=== PATIENT | female | born 1975 | race American Indian/Alaskan Native ===

== ENCOUNTER 2017-12-31 23:24 | Emergency (ER) | payer MEDICAID ==
[2018-01-01 02:06] LABS: Basophils # (Auto) 0.1 K/mm3 (0.0-0.1); Basophils % (Auto) 0.8 % (0.0-1.8); Eosinophils # (Auto) 0.2 K/mm3 (0.0-0.4); Eosinophils % (Auto) 1.3 % (0.0-4.3); Hematocrit 39.6 % (30.3-42.9); Lymphocytes # (Auto) 3.6 K/mm3 (1.2-5.4); Lymphocytes % (Auto) 29.9 % (13.4-35.0); Mean Corpuscular HGB Conc 33 % (30-34); Mean Corpuscular Hemoglobin 29 pg (28-32); Mean Corpuscular Volume 88 fl (79-97); Monocytes # (Auto) 0.9 K/mm3 (0.0-0.8); Monocytes % (Auto) 7.3 % (0.0-7.3); Platelet Count 301 K/mm3 (140-440); Red Cell Distribution Width 15.8 % (13.2-15.2)
[2018-01-01 02:19] LABS: Alanine Aminotransferase 13 units/L (7-56); Albumin 3.9 g/dL (3.9-5); BUN/Creatinine Ratio 10; Blood Urea Nitrogen 9 mg/dL (7-17); Calcium 9.1 mg/dL (8.4-10.2); Hemolysis Index 13
[2018-01-01 06:10] LABS: Amorphous Crystals,Urine 1+; Bacteria,Urine 1+ /HPF (Negative); Bilirubin,Urine NEG (Negative); Blood,Urine NEG (Negative); Color,Urine Yellow (Yellow); Protein,Urine <15 mg/dL mg/dL (Negative)
[2018-01-01 06:11] LABS: HCG Qualitative,Urine Negative (Negative)
[2018-01-01 07:45] VITALS: BP 137/94
[2018-01-01] MEDS ORDERED: MOTRIN PO ONE (08:12)
[2018-01-01] MEDS ORDERED: BACTRIM DS PO ONE (08:12)
--- NOTE | 2018-01-01 08:20 | Emergency Department Report ---
HPI - General Chief Complaint: Abdominal Pain Time Seen by Provider: 01/01/18 07:53 - HPI HPI: Patient is a 42-year-old female with no problem medical history who presents to ED complaining of low pelvic cramping 3-4 days. Patient states she is also some intermittent nausea but no vomiting. He also had mentioned she had frequency but no dysuria. She denies fevers/chills/abdominal pain/shortness of breath since chest pain/diarrhea or constipation/vaginal bleeding/vaginal discharge. ED Past Medical Hx - Past Medical History Previous Medical History?: Yes Hx Hypertension: No Hx Diabetes: No Hx Deep Vein Thrombosis: No Hx Renal Disease: No Hx Sickle Cell Disease: No Hx Seizures: No Hx Asthma: Yes (albuterol prn) - Surgical History Past Surgical History?: No - Social History Smoking Status: Current Every Day Smoker Substance Use Type: Alcohol - Medications Home Medications: Home Medications Medication Instructions Recorded Confirmed Last Taken Type Acetaminophen/Codeine [Tylenol #3] 1 tab PO Q6H PRN #12 tab 10/22/13 Unknown Rx Azithromycin [Zithromax] 2 tab PO ONCE #2 tablet 10/22/13 Unknown Rx Vits96/Iron Fum/Folic 10/22/13 10/22/13 Unknown History [ Tablet] Ibuprofen [Motrin 800 MG tab] 800 mg PO TID #30 tablet 01/01/18 Unknown Rx Sulfamethoxazole/Trimethoprim 1 each PO BID #14 tablet 01/01/18 Unknown Rx [Bactrim DS TAB] ED Review of Systems ROS: Stated complaint: BAD PAIN IN LOWER ABDOMEN Other details as noted in HPI Constitutional: denies: chills, fever Eyes: denies: eye pain, eye discharge, vision change ENT: denies: ear pain, throat pain Respiratory: denies: cough, shortness of breath, wheezing Cardiovascular: denies: chest pain, palpitations Endocrine: no symptoms reported Gastrointestinal: denies: abdominal pain, nausea, diarrhea Genitourinary: denies: urgency, dysuria, discharge Musculoskeletal: denies: back pain, joint swelling, arthralgia Skin: denies: rash, lesions Neurological: denies: headache, weakness, paresthesias Psychiatric: denies: anxiety, depression Hematological/Lymphatic: denies: easy bleeding, easy bruising Physical Exam - Physical Exam Vital Signs: Vital Signs 01/01/18 01/01/18 01:08 07:43 Temperature 99 F 98.4 F Pulse Rate 80 75 Respiratory 16 18 Rate Blood Pressure 139/94 Blood Pressure 137/94 [Right] O2 Sat by Pulse 100 98 Oximetry Physical Exam: GENERAL: Alert and oriented x3, no apparent distress, Normal Gait, atraumatic. HEAD: Head is normocephalic and a-traumatic. LUNGS: Symetrical with respiration, No wheezing, no rales or crackles, CTAB. HEART: S1, S2 present, regular rate and rhythm without murmur, no rubs, no gallops. Non tender to palpation ABDOMEN: No organomegaly was noted,Positive bowel sounds, soft, and non- distended. Nontender to palpation on all Quadrants, NO CVA tenderness. BACK: Full range of motion, no spinal tenderness, nontender to palpation. SKIN: Warm and dry, No lesions, No ulceration or induration present. ED Course Vital Signs 01/01/18 01/01/18 01:08 07:43 Temperature 99 F 98.4 F Pulse Rate 80 75 Respiratory 16 18 Rate Blood Pressure 139/94 Blood Pressure 137/94 [Right] O2 Sat by Pulse 100 98 Oximetry ED Medical Decision Making - Lab Data Result diagrams: 01/01/18 01:35 01/01/18 01:35 - Medical Decision Making 42-year-old female present with urinary tract infection ED course: Motrin and Bactrim ordered for patient. Pt received CBC,BMP, urinalysis, urine test was ordered. Labs are within normal limits mildly elevated white count, urinalysis shows bacteria, leukocyte esterase and urine test negative I discussed with the patient her lab results and discussed with her that she has a urinary tract infection I discussed with the patient initially with minimal antibiotics. Vital signs are normal, patient is in no acute distress. sHe is alert and oriented and understands all instructions given. Critical care attestation.: If time is entered above; I have spent that time in minutes in the direct care of this critically ill patient, excluding procedure time. ED Disposition Clinical Impression: Nausea UTI (urinary tract infection) Qualifiers: Urinary tract infection type: acute cystitis Hematuria presence: without hematuria Qualified Code(s): N30.00 - Acute cystitis without hematuria Disposition: TO HOME OR SELFCARE Is pt being admited?: No Does the pt Need Aspirin: No Condition: Stable Instructions: Urinary Tract Infection in Women (ED), Abdominal Pain (ED) Additional Instructions: Make sure to follow up with the primary care physician as discussed. Take all your medications as you've been prescribed. If you have any worsening symptoms or develop new symptoms please return to ED immediately. Prescriptions: Ibuprofen [Motrin 800 MG tab] 800 mg PO TID #30 tablet Sulfamethoxazole/Trimethoprim [Bactrim DS TAB] 1 each PO BID #14 tablet Referrals: PRIMARY CARE, [Primary Care Provider] - 3-5 Days [facility] [Outside] - 3-5 Days [facility] [Outside] - 3-5 Days [facility] [Outside] - 3-5 Days Forms: Work/School Release Form(ED) Time of Disposition: 08:32
== END 2018-01-01 08:25 | disposition home or self-care (01) ==
LOC: ED 23:24
DX: N30.00 Acute cystitis without hematuria (principal); J45.909 Unspecified asthma, uncomplicated; F17.200 Nicotine dependence, unspecified, uncomplicated
CPT/HCPCS: 36415; 80053; 81001; 81025; 85025; 99283